=== PATIENT | male | born 1970 | race Caucasian/White ===

== ENCOUNTER 2016-11-02 18:20 | Emergency (ER) | payer OTHER ==
[~2016-11-02] VITALS: Ht 185.4 cm; Wt 97.5 kg
[~2016-11-02 18:20] MED LIST: CEPHALEXIN 500500 M1 PO; CIPROFLOXACIN500 M3; ENDOCET 10-6501 EACH; FLOMAX PO; IBUPROFEN 800800 M1 PO; NORCO 5-325 TA1 EACH PO; PERCOCET 5-3251 EACH PO; PHENERGAN 25 MG25 M1 PO; TAMSULOSIN HCL0.4 M1 PO; TAMSULOSIN HCL0.4 MG PO; ZOFRAN ODT4 MG PO; ZOLOFT100 MG PO
[2016-11-02 20:07] LABS: URINE BILIRUBIN NEGATIVE (Negative); URINE BLOOD 3+ (Negative); URINE COLOR YELLOW; URINE GLUCOSE-RANDOM* NEGATIVE (Negative); URINE KETONES 1+ (Negative); URINE LEUKOCYTES-REFLEX NEGATIVE (Negative); URINE PROTEIN (DIPSTICK) 1+ (Negative); URINE SPECIFIC GRAVITY >= 1.030 (1.003-1.035)
[2016-11-02 20:13] LABS: CASTS None Seen /LPF (None Seen); CRYSTALS None Seen /LPF (None Seen); SQUAMOUS None Seen /LPF (0-3)
[2016-11-02 20:15] LABS: URINE RBC >20 Many /HPF (0-2); URINE WBC-REFLEX 0-5 Rare /HPF (0-5)
[2016-11-02 20:18] LABS: HEMATOCRIT 40.3 % (42.0-52.0); HEMOGLOBIN 14.1 gm/dL (14.0-18.0); MCH 30.3 pg (26.0-34.0); MCHC 35.1 g/dL (28.0-37.0); MCV 86.5 fL (80.0-100.0); PLATELET COUNT 199 thou/uL (150-400); RBC 4.65 mil/uL (4.50-6.00); RDW 13.2 % (10.5-14.5); WBC 17.5 thou/uL (4.0-11.0)
[2016-11-02 20:21] LABS: MANUAL DIFF YES
[2016-11-02 20:38] LABS: CALCIUM 8.7 mg/dL (8.5-10.1); CREATININE 1.5 mg/dL (0.7-1.3); POTASSIUM 4.1 mmol/L (3.5-5.1)
[2016-11-02 20:43] LABS: ABSOLUTE NEUTROPHILS 16.5 thou/uL (1.4-8.2); ALBUMIN 3.9 g/dL (3.4-5.0); TOTAL BILIRUBIN 1.7 mg/dL (<0.1-1.0); TOTAL CELL COUNT 100; TOTAL PROTEIN 7.6 g/dL (6.4-8.2)
[2016-11-02 20:44] LABS: ANISOCYTOSIS 1+; MICROCYTES 1+
[2016-11-02] MEDS ORDERED: FLOMAX0.4 MG PO (21:40)
[2016-11-02] MEDS ORDERED: PHENERGAN 25 MG25 M1 PO (21:40)
[2016-11-02] MEDS ORDERED: BACTRIM DS TAB1 EACH PO (21:40)
[2016-11-02] MEDS ORDERED: NORCO 5-325 TA1 EACH PO (21:42)
== END 2016-11-02 22:04 | disposition home or self-care (01) ==
LOC: ER 18:20
PROVIDERS: Physician Assistant
DX: N20.0 Calculus of kidney (principal); R10.9 Unspecified abdominal pain; N28.9 Disorder of kidney and ureter, unspecified; R31.9 Hematuria, unspecified; Z85.47 Personal history of malignant neoplasm of testis; F10.99 Alcohol use, unspecified with unspecified alcohol-induced disorder

== ENCOUNTER 2018-07-28 16:13 | Emergency (ER) | payer OTHER ==
[~2018-07-28] VITALS: Ht 185.4 cm; Wt 97.5 kg
[~2018-07-28 16:13] MED LIST changes: +BACTRIM DS TAB1 EACH PO; +FLOMAX0.4 MG PO
[2018-07-28 17:42] LABS: ABSOLUTE NEUTROPHILS 11.1 thou/uL (1.4-8.2); BASOPHILS 0.3 % (0.0-2.0); EOSINOPHILS 0.2 % (0.0-3.0); HEMOGLOBIN 15.9 gm/dL (14.0-18.0); LYMPHOCYTES 9.4 % (24.0-44.0); MCH 30.1 pg (26.0-34.0); MCHC 34.6 g/dL (28.0-37.0); MCV 86.9 fL (80.0-100.0); MONOCYTES 9.3 % (1.0-8.0); PLATELET COUNT 255 thou/uL (150-400); POLYS 80.8 % (36.0-66.0); RBC 5.29 mil/uL (4.50-6.00); WBC 13.8 thou/uL (4.0-11.0)
[2018-07-28 17:43] LABS: URINE BILIRUBIN NEGATIVE (Negative); URINE BLOOD 3+ (Negative); URINE CLARITY CLEAR; URINE COLOR YELLOW; URINE GLUCOSE-RANDOM* NEGATIVE (Negative); URINE KETONES NEGATIVE (Negative); URINE LEUKOCYTES-REFLEX NEGATIVE (Negative); URINE NITRITE-REFLEX NEGATIVE (Negative); URINE PROTEIN (DIPSTICK) NEGATIVE (Negative); URINE SPECIFIC GRAVITY > 1.030 (1.005-1.035); URINE UROBILINOGEN 0.2 E.U./dl (0.2-1.0)
[2018-07-28 17:52] LABS: CALCIUM 9.6 mg/dL (8.5-10.1); CREATININE 1.3 mg/dL (0.7-1.3); POTASSIUM 3.6 mmol/L (3.5-5.1)
[2018-07-28 17:58] LABS: ALBUMIN 4.4 g/dL (3.4-5.0); TOTAL BILIRUBIN 2.1 mg/dL (<0.1-1.0)
[2018-07-28 17:59] LABS: BACTERIA-REFLEX 1-9 Few /HPF (None Seen); CASTS None Seen /LPF (None Seen); SQUAMOUS 0-3 Few /LPF (0-3); URIC ACID CRYSTALS 4-10 Moderate /LPF (None Seen); URINE RBC 3-10 Few /HPF (0-2); URINE WBC-REFLEX 0-5 Rare /HPF (0-5)
[2018-07-28] MEDS ORDERED: TORADOL 10 MG T10 MG PO (18:52)
[2018-07-28] MEDS ORDERED: KEFLEX500 M1 PO (18:52)
[2018-07-28] MEDS ORDERED: HYDROCODONE-AP1 EAC6 PO (18:52)
[2018-07-28 20:00] VITALS: BP 157/103
== END 2018-07-28 20:00 | disposition home or self-care (01) ==
LOC: ER 16:13
PROVIDERS: Physician Assistant
DX: N20.0 Calculus of kidney (principal); N39.0 Urinary tract infection, site not specified